=== PATIENT | male | born 1980 | race Caucasian/White ===

== ENCOUNTER 2019-09-16 19:25 | Emergency (ER) | payer OTHER ==
[2019-09-16 19:35] VITALS: TEMP 98.4
[2019-09-16] MEDS ORDERED: KETOROLAC 30 MG/ML 1 ML VIAL IVP STA (20:31)
[2019-09-16] MEDS ORDERED: SODIUM CHLORIDE 0.9% 1,000 ML IV STA (20:31)
[2019-09-16] MEDS ORDERED: ONDANSETRON 4 MG/2 ML VIAL IVP STA (20:31)
--- NOTE | 2019-09-16 20:34 | ED ---
Abdominal Pain HPI - General Chief Complaint: Abdominal Pain Stated Complaint: Poss kidney stone Time Seen by Provider: 09/16/19 20:05 Source: patient Mode of arrival: ambulatory Limitations: no limitations - History of Present Illness Initial Comments: Patient is a 39-year-old male presenting to the emergency department with a chief complaint of abdominal pain. Patient states he developed sudden onset of pain that starts along the left flank region and radiates along the left side of the abdomen to the groin. Symptoms began today. He states the pain is sharp in nature and is not alleviated or exacerbated with any specific movements. Patient does report nausea but denies any vomiting or diarrhea. Patient denies testicular pain, swelling, penile discharge or pain. Patient denies any trauma to the region. He denies any shortness of breath or chest pain. Patient had an appendectomy at an early age. - Related Data Previous Rx's Medication Instructions Recorded Ketorolac [Toradol] 10 mg PO Q8HR #15 tab 09/16/19 Tamsulosin [Flomax] 0.4 mg PO DAILY #7 cap 09/16/19 Allergies Allergy/AdvReac Type Severity Reaction Status Date / Time No Known Allergies Allergy Verified 09/16/19 19:58 Review of Systems ROS Statement: Those systems with pertinent positive or pertinent negative responses have been documented in the HPI. ROS Other: All systems not noted in ROS Statement are negative. Past Medical History Past Medical History: Hypertension History of Any Multi-Drug Resistant Organisms: None Reported Past Surgical History: Appendectomy Past Psychological History: Depression Smoking Status: Former smoker Past Alcohol Use History: None Reported Past Drug Use History: None Reported General Exam Limitations: no limitations General appearance: alert, in no apparent distress Head exam: Present: atraumatic, normocephalic, normal inspection Eye exam: Present: normal appearance, PERRL, EOMI Pupils: Present: normal accommodation ENT exam: Present: normal exam, mucous membranes moist Neck exam: Present: normal inspection, full ROM Respiratory exam: Present: normal lung sounds bilaterally Cardiovascular Exam: Present: regular rate, normal rhythm, normal heart sounds GI/Abdominal exam: Present: soft, tenderness (Left flank, left lower quadrant), normal bowel sounds. Absent: distended, guarding, rebound, rigid, organomegaly, mass, bruit, pulsatile mass, hernia Extremities exam: Present: normal inspection, full ROM Back exam: Present: normal inspection, full ROM, CVA tenderness (L) Neurological exam: Present: alert Psychiatric exam: Present: normal affect, normal mood Skin exam: Present: warm, dry, intact, normal color Course Vital Signs 09/16/19 19:32 Temperature 98.4 F Pulse Rate 76 Respiratory 20 Rate Blood Pressure 161/98 O2 Sat by Pulse 100 Oximetry Medical Decision Making - Medical Decision Making Patient is a 39-year-old male presenting to emergency Department with a chief complaint of abdominal pain. Exam patient has left CVA tenderness. Patient has pain from the left CVA region radiating to the front left groin region. Patient does have gross hematuria. Patient does have an elevated white count. No testicular pain or swelling. UA shows large amounts of blood or red blood cells. No signs of urinary tract infection. Patient was given fluids and T oradol in the ED which greatly improved his symptoms. Patient will be treated with Flomax and Toradol. Patient advised to drink lots of fluids. Patient was to follow-up with urology. Strict return parameters were thoroughly discussed the patient was understanding and agreeable. Case discussed with physician. - Lab Data Result diagrams: 09/16/19 20:45 09/16/19 20:45 Lab Results 09/16/19 09/16/19 09/16/19 Range/Units 20:45 20:45 20:48 WBC 17.8 H (3.8-10.6) k/uL RBC 4.84 (4.30-5.90) m/uL Hgb 15.1 (13.0-17.5) gm/dL Hct 42.3 (39.0-53.0) % MCV 87.4 (80.0-100.0) fL MCH 31.1 (25.0-35.0) pg MCHC 35.6 (31.0-37.0) g/dL RDW 11.9 (11.5-15.5) % Plt Count 309 (150-450) k/uL Neutrophils % 87 % Lymphocytes % 9 % Monocytes % 2 % Eosinophils % 1 % Basophils % 0 % Neutrophils # 15.5 H (1.3-7.7) k/uL Lymphocytes # 1.6 (1.0-4.8) k/uL Monocytes # 0.4 (0-1.0) k/uL Eosinophils # 0.1 (0-0.7) k/uL Basophils # 0.1 (0-0.2) k/uL Sodium 141 (137-145) mmol/L Potassium 3.9 (3.5-5.1) mmol/L Chloride 104 (98-107) mmol/L Carbon Dioxide 25 (22-30) mmol/L Anion Gap 12 mmol/L BUN 15 (9-20) mg/dL Creatinine 1.04 (0.66-1.25) mg/dL Est GFR (CKD-EPI)AfAm >90 (>60 ml/min/1.73 sqM) Est GFR (CKD-EPI)NonAf >90 (>60 ml/min/1.73 sqM) Glucose 108 H (74-99) mg/dL Calcium 10.1 (8.4-10.2) mg/dL Total Bilirubin 0.5 (0.2-1.3) mg/dL AST 31 (17-59) U/L ALT 21 (4-49) U/L Alkaline Phosphatase 83 (38-126) U/L Total Protein 7.8 (6.3-8.2) g/dL Albumin 4.9 (3.5-5.0) g/dL Urine Color Light Red Urine Appearance Cloudy (Clear) Urine pH 5.5 (5.0-8.0) Ur Specific [place] 1.038 H (1.001-1.035) Urine Protein 2+ H (Negative) Urine Glucose (UA) Negative (Negative) Urine Ketones 1+ H (Negative) Urine Blood Large H (Negative) Urine Nitrite Negative (Negative) Urine Bilirubin Negative (Negative) Urine Urobilinogen <2.0 (<2.0) mg/dL Ur Leukocyte Esterase Negative (Negative) Urine RBC >182 H (0-5) /hpf Urine WBC 8 H (0-5) /hpf Urine Bacteria Occasional H (None) /hpf Hyaline Casts 4 H (0-2) /lpf Urine Mucus Many H (None) /hpf Disposition Clinical Impression: Abdominal pain, Kidney stone, Hematuria Disposition: HOME SELF-CARE Condition: Stable Instructions (If sedation given, give patient instructions): Kidney Stones (ED) Additional Instructions: Please follow up with urology. Take prescribed medication as directed. Please return to emergency department if symptoms worsen. Prescriptions: Tamsulosin [Flomax] 0.4 mg PO DAILY #7 cap Ketorolac [Toradol] 10 mg PO Q8HR #15 tab Is patient prescribed a controlled substance at d/c from ED?: No Referrals: None,Stated [Primary Care Provider] - 1-2 days Time of Disposition: 21:50
[2019-09-16 21:09] LABS: Basophils # (A) 0.1 k/uL (0-0.2); Basophils % (A) 0 %; Eosinophils # (A) 0.1 k/uL (0-0.7); Eosinophils % (A) 1 %; HCT 42.3 % (39.0-53.0); HGB 15.1 gm/dL (13.0-17.5); Lymphocytes # (A) 1.6 k/uL (1.0-4.8); Lymphocytes % (A) 9 %; MCH 31.1 pg (25.0-35.0); MCHC 35.6 g/dL (31.0-37.0); MCV 87.4 fL (80.0-100.0); Mean Platelet Volume 8.5; Monocytes # (A) 0.4 k/uL (0-1.0); Monocytes % (A) 2 %; Neutrophils # (A) 15.5 k/uL (1.3-7.7); Neutrophils % (A) 87 %; Platelet Count 309 k/uL (150-450); RBC 4.84 m/uL (4.30-5.90); RDW 11.9 % (11.5-15.5); WBC 17.8 k/uL (3.8-10.6)
[2019-09-16 21:17] LABS: Appearance,Urine Cloudy (Clear); Bacteria,Urine Occasional /hpf; Bilirubin,Urine Negative (Negative); Blood,Urine Large (Negative); Color,Urine Light Red; Glucose,Urine (UA) Negative (Negative); Hyaline Casts,Urine 4 /lpf (0-2); Ketones,Urine 1+ (Negative); Leukocyte Esterase,Urine Negative (Negative); Mucus,Urine Many /hpf; Nitrite,Urine Negative (Negative); PH, Urine 5.5 (5.0-8.0); Protein,Urine 2+ (Negative); RBC,Urine >182 /hpf (0-5); Specific Gravity,Urine 1.038 (1.001-1.035); Urobilinogen,Urine <2.0 mg/dL (<2.0); WBC,Urine 8 /hpf (0-5)
[2019-09-16 21:22] LABS: ALT 21 U/L (4-49); AST 31 U/L (17-59); African American GFR (CKD) >90 (>60 ml/min/1.73 sqM); Albumin 4.9 g/dL (3.5-5.0); Alkaline Phosphatase 83 U/L (38-126); Anion Gap 12 mmol/L; Blood Urea Nitrogen 15 mg/dL (9-20); Calcium 10.1 mg/dL (8.4-10.2); Carbon Dioxide 25 mmol/L (22-30); Chloride 104 mmol/L (98-107); Glucose 108 mg/dL (74-99); Non-African American GFR(CKD) >90 (>60 ml/min/1.73 sqM); Potassium 3.9 mmol/L (3.5-5.1); Sodium 141 mmol/L (137-145); Total Bilirubin 0.5 mg/dL (0.2-1.3); Total Protein 7.8 g/dL (6.3-8.2)
[2019-09-16 22:09] VITALS: BP 132/91; PULSE 98; RESP 18
== END 2019-09-16 22:09 | disposition home or self-care (01) ==
LOC: EC 19:25
DX: N20.0 Calculus of kidney (principal); D72.829 Elevated white blood cell count, unspecified; Z90.49 Acquired absence of other specified parts of digestive tract; Z87.891 Personal history of nicotine dependence
CPT/HCPCS: 36415; 80053; 85025; 81001; 99284; 96374; 96375; 96361; J2405; J1885